=== PATIENT | male | born 1985 | race African-American/Black ===

== ENCOUNTER 2021-03-01 11:59 | Emergency (ER) | payer OTHER ==
[~2021-03-01] VITALS: Ht 175.3 cm; Wt 109.0 kg
[2021-03-01] MEDS ORDERED: ACETAMINOPHEN 325MG TABLET PO ONE (12:15)
[2021-03-01] MEDS ORDERED: IBUP-2028 PO (13:45)
[2021-03-01] MEDS ORDERED: OXYC-100 PO (13:45)
[2021-03-01 14:45] VITALS: BP 158/85
== END 2021-03-01 14:45 | disposition home or self-care (01) ==
LOC: ER 11:59
DX: S22.42XA Multiple fractures of ribs, left side, initial encounter for closed fracture (principal); V00.831A Fall from motorized mobility scooter, initial encounter; Y93.89 Activity, other specified; Y92.9 Unspecified place or not applicable; I10 Essential (primary) hypertension; Z98.890 Other specified postprocedural states
CPT/HCPCS: 71101; 99283; Z7610

== ENCOUNTER 2021-07-21 14:05 | Emergency (ER) | payer MEDICAID, OTHER ==
[~2021-07-21] VITALS: Ht 157.5 cm; Wt 101.0 kg
[~2021-07-21 14:05] MED LIST: IBUP-2028 PO; OXYC-100 PO
[2021-07-21] MEDS ORDERED: ACET-2708 MT (15:17)
[2021-07-21] MEDS ORDERED: CEPH500T MT (15:17)
[2021-07-21] MEDS ORDERED: NAPR-1176 MT (15:17)
[2021-07-21] MEDS ORDERED: IBUPROFEN 400MG TABLET PO ONE (15:30)
[2021-07-21] MEDS ORDERED: BACITRACIN ZINC OINT UDPKT TOP ONE (15:30)
[2021-07-21] MEDS ORDERED: TETANUS, DIPHTHERIA, PERTUSSIS VAC/PF 0.5ML (>10YR OLD) IM ONE (15:30)
[2021-07-21] MEDS ORDERED: ACETAMINOPHEN 325MG TABLET PO ONE (15:30)
[2021-07-21] MEDS ORDERED: CEPHALEXIN 250MG CAPSULE PO ONE (15:30)
[2021-07-21 15:37] VITALS: BP 191/87
== END 2021-07-21 16:42 | disposition home or self-care (01) ==
LOC: ER 14:05
DX: S91.204A Unspecified open wound of right lesser toe(s) with damage to nail, initial encounter (principal); I10 Essential (primary) hypertension; E11.9 Type 2 diabetes mellitus without complications; Z90.49 Acquired absence of other specified parts of digestive tract; W22.01XA Walked into wall, initial encounter; Y93.89 Activity, other specified; Y92.018 Other place in single-family (private) house as the place of occurrence of the external cause
CPT/HCPCS: 73660; 90471; 90715; 99284

== ENCOUNTER 2022-12-15 14:25 | Emergency (ER) | payer MEDICAID, OTHER ==
[~2022-12-15] VITALS: Ht 172.7 cm; Wt 109.0 kg
[~2022-12-15 14:25] MED LIST changes: +ACET-2708 MT; +CEPH500T MT; +NAPR-1176 MT
[2022-12-15 20:36] LABS: BASOPHILS % 0.4 % (0.0-2.0); EOSINOPHILS % 0.1 % (0.0-5.0); HEMATOCRIT. 47.3 % (42.0-52.0); HEMOGLOBIN. 16.7 g/dL (14.0-18.0); LYMPHOCYTES % 8.7 % (20.0-50.0); MEAN CORPUSCULAR HEMOGLOBIN 32.9 pg (28.0-32.0); MEAN CORPUSCULAR VOLUME 93.2 fL (80.0-94.0); MEAN PLATELET VOLUME 9.6 fl (7.4-10.4); MONOCYTES % 10.9 % (2.0-8.0); NEUTROPHILS % 79.9 % (40.0-76.0); PLATELET 205 x1000/uL (130-400); RED BLOOD CELL COUNT 5.08 mill/uL (4.7-6.1); RED CELL DISTRIBUTION WIDTH 12.6 % (11.6-14.6)
[2022-12-15 20:43] LABS: INR 1.1; PROTHROMBIN TIME 11.5 sec (9.6-11.0)
[2022-12-15 20:47] LABS: CHLORIDE 96 mEq/L (98-107)
[2022-12-15] MEDS ORDERED: KETOROLAC 30MG/ML VIAL IV ONE (21:00)
[2022-12-15] MEDS ORDERED: DEXAMETHASONE 10 MG/ML VIAL PO ONE (21:00)
[2022-12-15] MEDS ORDERED: IOHEXOL-300 100 ML BOTTLE ONE (21:51)
[2022-12-15] MEDS ORDERED: AMPICILLIN SOD/SULBACTAM NA 3 G in SODIUM CHLORIDE 0.9% 100 ML IV SCH (22:30)
[2022-12-16] MEDS ORDERED: HYDRALAZINE 20MG/ML VIAL IV ONE (00:45)
[2022-12-16 00:59] VITALS: BP 132/80
== END 2022-12-16 01:19 | disposition short-term general hospital (02) ==
LOC: ER 14:25 → CANBEDREQ 12-16 07:21
DX: K12.2 Cellulitis and abscess of mouth (principal); I10 Essential (primary) hypertension; E11.9 Type 2 diabetes mellitus without complications; Z90.49 Acquired absence of other specified parts of digestive tract
CPT/HCPCS: 36415; 70487; 80053; 83605; 85025; 85610; 85651; 87040; 96374; 96375; 99291; J0360; J1100; J1885; Q9967; Z7610; J0295; J7050